=== PATIENT | male | born 1960 | race Asian ===

== ENCOUNTER 2019-06-19 18:30 | Emergency (ER) | payer OTHER ==
[~2019-06-19] VITALS: Ht 180.3 cm; Wt 113.4 kg
[~2019-06-19 18:30] MED LIST: AMLODIPINE BESYLATE PO; ASA LO-DOSE81 MG OR; ATIVAN2 MG PO; BENZ1TAB43 PO; CLON1TAB18 PO; DIPH50CA30 PO; DIVA500T2 OR; DIVA500T2 PO; DONE5TAB PO; FERROUS SULF325 M1 PO; FLUOXETINE20 M1 OR; FLUPHENAZINE25 MG/ML IM; GLYB5TAB65 PO; HALO5INJ3 IM; HYDROCHLOROT12.5 M1 PO; LEVO-T25 MCG PO; LEVO0.1T6 PO; LISI10TA11 PO; LORA2INJ21 IM; METAMUCIL0.52 GM OR; METO50TA27 PO; MULTIVITAMI1 PO; NEURONTIN800 MG PO; OCUVITE OR; OMEP20CA PO; PANT40TA PO; PROPRANOLOL10 MG PO; SEROQUEL300 MG OR; SOD CHLORIDE1 GM OR; TEMA15CA19 PO; TRAM50TA PO; VITAMIN D35000 UNIT PO; VITAMIN DE1000 MCG/M IM; ZIPR20IN IM; ZIPR80CA PO; ZYPREXA ZYDI10 MG PO
[2019-06-19 19:33] LABS: PLATELET COUNT 252 K/uL (142-355)
[2019-06-19 19:53] LABS: POTASSIUM 3.9 mmol/L (3.6-5.2)
[2019-06-19 20:15] VITALS: BP 159/89; TEMP 98.7
[2019-06-19] MEDS ORDERED: FAMO20TA4 PO (21:01)
[2019-06-19] MEDS ORDERED: LORA0.5T17 PO (21:01)
[2019-06-19] MEDS ORDERED: OLANZAPINE10 M2 PO (21:02)
[2019-06-19] MEDS ORDERED: ROWEEPRA500 MG PO (21:05)
[2019-06-19] MEDS ORDERED: DIVALPROEX250 M1 PO (21:05)
[2019-06-19] MEDS ORDERED: PROPRANOLOL10 MG PO (21:06)
[2019-06-19] MEDS ORDERED: DIVA500T2 PO (21:06)
[2019-06-19] MEDS ORDERED: SODI1TAB PO (21:07)
[2019-06-19] MEDS ORDERED: LACTULOSE10 GM/15 M PO (21:08)
[2019-06-19] MEDS ORDERED: FLUPHENAZINE5 MG PO (21:09)
[2019-06-19] MEDS ORDERED: LORA1TAB17 PO (21:09)
[2019-06-19] MEDS ORDERED: OLANZAPINE20 M1 PO (21:10)
== END 2019-06-19 20:15 | disposition other institution (70) ==
LOC: ED 18:30
PROVIDERS: Emergency Medicine
DX: R44.2 Other hallucinations (principal); F28 Other psychotic disorder not due to a substance or known physiological condition; I10 Essential (primary) hypertension; Z04.6 Encounter for general psychiatric examination, requested by authority
CPT/HCPCS: 80053; 81000; 85027; 93005; 99283